=== PATIENT | female | born 1985 | race Caucasian/White ===

== ENCOUNTER 2022-09-23 10:52 | Emergency (ER) | payer OTHER, SELFPAY ==
[2022-09-23] VITALS (27 sets, daily range): BP systolic 110–147; BP diastolic 54–72; PULSE 67–96; RESP 14–18; TEMP 36.7–37; O2SAT 97–100; BMI 26.9
[2022-09-23 11:32] LABS: Add Manual Diff / Slide Review NO; Basophils Absolute Auto 0 /uL (0-100); Basophils Percent Auto 0.8 % (0-2); Eosinophils Absolute Auto 200 /uL (0-450); Eosinophils Percent Auto 3.2 % (2-4); Lymphocytes Absolute Auto 1500 /uL (1100-4500); Lymphocytes Percent Auto 32.8 % (25-40); Mean Corpuscular HGB Conc 29.9 % (30-36); Mean Corpuscular Volume 60.1 fL (80-100); Monocytes Absolute Auto 300 /uL (0-900); Neutrophils Absolute Auto 2600 /uL (1500-7000); Neutrophils Percent Auto 56.2 % (50-75); Platelet Count 435 X10^3/uL (150-400); Red Blood Cell Count 3.37 X10^6/uL (4.0-5.2); White Blood Cell Count 4.6 X10^3/uL (4.5-11.0)
[2022-09-23 11:35] LABS: Hematocrit 20.3 % (36-46); Hemoglobin 6.1 g/dL (12.0-16.0)
[2022-09-23 11:47] LABS: Alanine Aminotransferase 17 IU/L (<35); Albumin 3.9 g/dL (3.5-5.0); Albumin Globulin Ratio 1.1 (1.0-2.8); Alkaline Phosphatase 60 U/L (38-126); Aspartate Aminotransferase 25 IU/L (14-36); BUN Creatinine Ratio 9.5 (6-22); Bilirubin Total 0.2 mg/dL (0.2-1.3); Blood Urea Nitrogen 7 mg/dL (7-17); Calcium 7.9 mg/dL (8.4-10.2); Carbon Dioxide 23 mmol/L (22-32); Chloride 109 mmol/L (98-107); Estimated Glomerular Filt Rate > 60 mL/min (>60); Globulin 3.4 g/dL (1.7-4.1); Glucose 79 mg/dL (70-100); HEMOLYSIS < 15 (0-50); Potassium 3.7 mmol/L (3.4-5.1); Sodium 142 mmol/L (137-145); Total Protein 7.3 g/dL (6.3-8.2)
[2022-09-23 12:04] LABS: Hypochromasia 3+; Microcytosis 3+
[2022-09-23 12:23] LABS: Bacteria Urine None Seen; Culture Indicated Urine Cult Not Indicated; RBC Urine None Seen (0-5/HPF); Squamous Epithelial Cell Urine 0-1 /HPF (0-5/HPF); WBC Urine None Seen (0-5/HPF)
--- NOTE | 2022-09-23 12:29 | DI.CT.S_ITS ---
PROCEDURE: CT ABDOMEN PELVIS W CON INDICATIONS: epigastric, LUQ pain TECHNIQUE: After the administration of oral and IV contrast, axial sections were acquired from the lung bases to the pubic symphysis. Coronal and sagittal reformats were performed. For radiation dose reduction, the following was used: automated exposure control, adjustment of mA and/or kV according to patient size. COMPARISON: None. FINDINGS: Image quality: Excellent. Lung bases: Unremarkable. A small hiatal hernia is incidentally noted. Heart: No significant findings. ABDOMEN: Liver: Unremarkable. Gallbladder: Removed. Biliary ducts: Unremarkable. Pancreas: Unremarkable. Spleen: Unremarkable. Adrenal Glands: Unremarkable. Kidneys and Ureters: A mildly complex septated right renal cyst is seen inferiorly measuring approximately 2.5 cm. The kidneys enhance symmetrically and demonstrate no hydronephrosis. Stomach and Bowel: Bariatric surgery is seen. Peritoneum: No abnormal intraperitoneal fluid. No free air. Ventral Wall: No hernia. Abdominal Nodes: No retroperitoneal or mesenteric adenopathy by size criteria. Vessels: Aorta and inferior vena cava are normal in size. PELVIS: Pelvic Organs: Unremarkable. There is a contraceptive ring seen at the vaginal apex. The uterus appears normal for age. No adnexal masses are seen. Tampon artifact is incidentally noted. Bladder: Unremarkable. Pelvic Nodes: No enlarged lymph nodes. Miscellaneous: No inguinal hernias are seen. Bones: Focal L5-S1 degenerative change is seen. Grade 1 L5-S1 anterolisthesis is seen, with associated bilateral L5 pars defects Mild levoconvex scoliotic curvature is noted. IMPRESSION: A cause of epigastric and left upper quadrant pain is not identified. Prior bariatric surgery, without sohan complication seen. There is a small hiatal hernia. Additional findings: Cholecystectomy Mildly complex right renal cysts, consider Bosniak 2 F Contraceptive ring at the vaginal apex Bilateral L5 pars defects, with grade 1 L5-S1 anterolisthesis Focal L5-S1 degenerative change Dictated by: Zbigniew Martínez M.D. on 09/23/2022 at 12:09 Approved by: Zbigniew Martínez M.D. on 09/23/2022 at 12:13
[2022-09-23] MEDS: KETOROLAC 30 MG/ML VIAL 15 MG IV (12:53)
[2022-09-23 13:41] LABS: INR 0.9 (0.9-1.3); Prothrombin Time 10.2 SECONDS (10.1-12.7)
[2022-09-23 13:44] LABS: PTT Partial Thromboplastin Tim 27 SECONDS (26-36)
[2022-09-23 14:37] LABS: Iron 17 ug/dL (37-170)
--- NOTE | 2022-09-23 14:40 | ED.DIZZY ---
HPI - Dizziness <Tushar Wu PA-C - Last Filed: 09/23/22 19:11> General Chief Complaint: Dizziness Stated Complaint: Low Iron Time Seen by Provider: 09/23/22 11:14 Source: patient Mode of arrival: Ambulatory History of Present Illness HPI Narrative: 37-year-old female who is status post a gastric bypass several years ago, PCOS, currently undergoing IVF treatments presents to the ED with 2 months of worsening dizziness, pallor, craving to eat ice chips. Patient states that her PCP did some blood work which showed a hematocrit of 6.6. Patient states that she just realized that she had stopped her iron supplements that she was supposed to take since having the gastric bypass. Patient states that she stopped the iron about 2 months ago when she started IVF treatments and did not realize it. Patient has no history of anemia prior to this. Patient denies fever, chills, chest pain, shortness of breath, abdominal pain, nausea, vomiting, dysuria, diarrhea, hematochezia, melena, syncope. Patient does endorse lightheadedness, particularly when she is changing positions from sitting to standing. Related Data Allergies Allergy/AdvReac Type Severity Reaction Status Date / Time metoclopramide [From Reglan] Allergy Verified 09/23/22 11:03 nalbuphine [From Nubain] Allergy Verified 09/23/22 11:03 Penicillins Allergy Verified 09/23/22 11:03 Review of Systems <Tushar Wu PA-C - Last Filed: 09/23/22 19:11> Review of Systems ROS Unobtainable: All systems reviewed & are unremarkable except as noted in HPI and below Constitutional Constitutional: Denies chills, Reports fatigue, Denies fever(s), Denies frequent falls, Reports lethargy and Denies weakness Comments: Lightheadedness Eyes Eyes: Denies change in vision, Denies eye discharge, Denies irritation and Denies loss of vision ENT Ears, Nose, Mouth, and Throat: Denies change in voice, Denies dizziness, Denies neck pain, Denies sore throat and Denies throat swelling Cardiovascular Cardiovascular: Denies chest pain, Denies irregular heart rhythm, Denies lightheadedness, Denies palpitations, Denies dyspnea, Denies dyspnea on exertion and Denies orthopnea Respiratory Respiratory: Denies cough, Denies dyspnea, Denies dyspnea on exertion and Denies wheezing Gastrointestinal Gastrointestinal: Denies abdominal pain, Denies change in bowel habits, Denies diarrhea, Denies nausea and Denies vomiting Genitourinary Genitourinary: Denies hematuria, Denies flank pain, Denies urinary incontinence and Denies urinary urgency Musculoskeletal Musculoskeletal: Denies back pain, Denies muscle weakness, Denies neck pain, Denies numbness and Denies tingling Integumentary/Breasts Skin/Breast: Reports change in pigmentation (pallor), Denies pruritus, Denies erythema, Denies rash and Denies wounds Neurologic Neurologic: Denies behavioral changes, Denies confusion, Denies dizziness, Denies frequent falls, Denies loss of vision, Denies numbness, Denies tingling and Denies weakness Psychiatric Psychiatric: Denies anxiety, Denies behavioral changes, Denies confusion, Denies depression, Denies homicidal ideation and Denies suicidal ideation Endocrine Endocrine: Reports fatigue, Denies flushing and Denies palpitations Hematologic/Lymphatic Hematologic/Lymphatic: Denies easy bruising Allergic/Immunologic Allergic/Immunologic: Denies urticaria, Denies throat swelling and Denies wheezing Patient History <Tushar Wu PA-C - Last Filed: 09/23/22 19:11> Social History Smoking Status: Never smoker Smoking Status: Never smoker alcohol intake frequency: holidays/special occasions only Substance Use Type: does not use Exam <Tushar Wu PA-C - Last Filed: 09/23/22 19:11> Narrative Exam Narrative: Const General:?cooperative, healthy appearing and comfortable; skin appears pale HENHI Head:?normal to inspection Ears:?hearing grossly normal bilaterally Nose:?external nose normal Face and sinus:?normal facial exam and sinuses nontender Mouth:?oral mucosae normal Throat:?posterior oropharynx normal Eyes General:?appearance normal, both eyes and all related structures Neck Neck:?normal visual inspection and no lymphadenopathy noted Resp Effort & Inspection:?normal respiratory effort Auscultation:?clear to auscultation bilaterally Cardio Rate:?regular rate Rhythm:?regular rhythm GI Abdomen is soft, nondistended, tender to palpation in the right upper quadrant and epigastric regions. Neuro General:?patient alert, patient awake and patient oriented x3 Initial Vital Signs Initial Vital Signs: Vital Signs Temperature 98.6 F 09/23/22 11:03 Pulse Rate 93 H 09/23/22 11:03 Respiratory Rate 18 09/23/22 11:03 Blood Pressure 122/70 09/23/22 11:03 Pulse Oximetry 100 09/23/22 11:03 Oxygen Delivery Method 09/23/22 11:03 <Jerilyn Maza DO - Last Filed: 09/25/22 07:24> Initial Vital Signs Initial Vital Signs: Vital Signs Temperature 98.6 F 09/23/22 11:03 Pulse Rate 93 H 09/23/22 11:03 Respiratory Rate 18 09/23/22 11:03 Blood Pressure 122/70 09/23/22 11:03 Pulse Oximetry 100 09/23/22 11:03 Oxygen Delivery Method 09/23/22 11:03 Course <Tushar Wu PA-C - Last Filed: 09/23/22 19:11> Orders Ordered: Discontinued Medications Ketorolac Tromethamine (Ketorolac 30 Mg/Ml Vial) 15 mg IV NOW ONE Stop: 09/23/22 12:27 Last Admin: 09/23/22 12:53 Dose: 15 mg Documented By: KENYETTA Ondansetron HCl (Ondansetron 4 Mg/2 Ml Inj) 4 mg IV NOW ONE Stop: 09/23/22 16:40 Last Admin: 09/23/22 16:40 Dose: 4 mg Documented By: KENYETTA Vital Signs Vital signs: Vital Signs - 8 hr 09/23/22 14:18 09/23/22 14:40 09/23/22 12:56 Temperature 98.1 F 98.2 F Pulse Rate 67 74 Respiratory Rate 14 14 Blood Pressure 118/59 L 110/56 L 116/59 L Pulse Oximetry 09/23/22 12:56 09/23/22 13:00 09/23/22 13:00 Temperature Pulse Rate 77 81 Respiratory Rate Blood Pressure 127/72 Pulse Oximetry 99 97 09/23/22 13:30 09/23/22 13:30 09/23/22 14:00 Temperature Pulse Rate 77 Respiratory Rate Blood Pressure 112/59 L 136/60 Pulse Oximetry 97 09/23/22 14:00 09/23/22 14:19 09/23/22 14:19 Temperature Pulse Rate 81 70 Respiratory Rate Blood Pressure 118/59 L Pulse Oximetry 99 100 12/26/22 14:30 09/23/22 14:30 09/23/22 14:45 Temperature Pulse Rate 73 Respiratory Rate Blood Pressure 110/56 L 130/65 Pulse Oximetry 100 09/23/22 14:45 09/23/22 15:00 09/23/22 15:00 Temperature Pulse Rate 75 74 Respiratory Rate Blood Pressure 116/57 L Pulse Oximetry 99 98 09/23/22 16:30 09/23/22 16:48 09/23/22 15:13 Temperature 98.3 F 98.3 F Pulse Rate 79 90 96 H Respiratory Rate 18 16 Blood Pressure 119/60 122/62 Pulse Oximetry 99 09/23/22 15:15 09/23/22 15:30 09/23/22 15:31 Temperature Pulse Rate 79 Respiratory Rate Blood Pressure 147/66 H 130/61 Pulse Oximetry 100 09/23/22 15:31 09/23/22 15:45 09/23/22 15:45 Temperature Pulse Rate 81 82 Respiratory Rate Blood Pressure 121/56 L Pulse Oximetry 100 98 09/23/22 16:00 09/23/22 16:00 09/23/22 16:15 Temperature Pulse Rate 86 Respiratory Rate Blood Pressure 112/54 L 120/59 L Pulse Oximetry 98 09/23/22 16:15 09/23/22 17:00 09/23/22 17:48 Temperature Pulse Rate 83 90 Respiratory Rate Blood Pressure 123/72 Pulse Oximetry 98 99 09/23/22 17:48 09/23/22 18:00 09/23/22 18:00 Temperature Pulse Rate 78 80 Respiratory Rate Blood Pressure 136/68 Pulse Oximetry 99 100 09/23/22 18:15 09/23/22 18:15 09/23/22 18:30 Temperature Pulse Rate 69 Respiratory Rate Blood Pressure 134/68 125/66 Pulse Oximetry 100 09/23/22 18:30 09/23/22 18:45 09/23/22 18:45 Temperature Pulse Rate 74 75 Respiratory Rate Blood Pressure 120/64 Pulse Oximetry 100 98 <Jerilyn Maza DO - Last Filed: 09/25/22 07:24> Orders Ordered: Discontinued Medications Ketorolac Tromethamine (Ketorolac 30 Mg/Ml Vial) 15 mg IV NOW ONE Stop: 09/23/22 12:27 Last Admin: 09/23/22 12:53 Dose: 15 mg Documented By: KENYETTA Ondansetron HCl (Ondansetron 4 Mg/2 Ml Inj) 4 mg IV NOW ONE Stop: 09/23/22 16:40 Last Admin: 09/23/22 16:40 Dose: 4 mg Documented By: KENYETTA Vital Signs Vital signs: Vital Signs - 8 hr 09/23/22 14:18 09/23/22 14:40 09/23/22 12:56 Temperature 98.1 F 98.2 F Pulse Rate 67 74 Respiratory Rate 14 14 Blood Pressure 118/59 L 110/56 L 116/59 L Pulse Oximetry 09/23/22 12:56 09/23/22 13:00 09/23/22 13:00 Temperature Pulse Rate 77 81 Respiratory Rate Blood Pressure 127/72 Pulse Oximetry 99 97 09/23/22 13:30 09/23/22 13:30 09/23/22 14:00 Temperature Pulse Rate 77 Respiratory Rate Blood Pressure 112/59 L 136/60 Pulse Oximetry 97 09/23/22 14:00 09/23/22 14:19 09/23/22 14:19 Temperature Pulse Rate 81 70 Respiratory Rate Blood Pressure 118/59 L Pulse Oximetry 99 100 09/23/22 14:30 09/23/22 14:30 09/23/22 14:45 Temperature Pulse Rate 73 Respiratory Rate Blood Pressure 110/56 L 130/65 Pulse Oximetry 100 09/23/22 14:45 09/23/22 15:00 09/23/22 15:00 Temperature Pulse Rate 75 74 Respiratory Rate Blood Pressure 116/57 L Pulse Oximetry 99 98 09/23/22 16:30 09/23/22 16:48 09/23/22 15:13 Temperature 98.3 F 98.3 F Pulse Rate 79 90 96 H Respiratory Rate 18 16 Blood Pressure 119/60 122/62 Pulse Oximetry 99 09/23/22 15:15 09/23/22 15:30 09/23/22 15:31 Temperature Pulse Rate 79 Respiratory Rate Blood Pressure 147/66 H 130/61 Pulse Oximetry 100 09/23/22 15:31 09/23/22 15:45 09/23/22 15:45 Temperature Pulse Rate 81 82 Respiratory Rate Blood Pressure 121/56 L Pulse Oximetry 100 98 09/23/22 16:00 09/23/22 16:00 09/23/22 16:15 Temperature Pulse Rate 86 Respiratory Rate Blood Pressure 112/54 L 120/59 L Pulse Oximetry 98 09/23/22 16:15 09/23/22 17:00 09/23/22 17:48 Temperature Pulse Rate 83 90 Respiratory Rate Blood Pressure 123/72 Pulse Oximetry 98 99 09/23/22 17:48 09/23/22 18:00 09/23/22 18:00 Temperature Pulse Rate 78 80 Respiratory Rate Blood Pressure 136/68 Pulse Oximetry 99 100 09/23/22 18:15 09/23/22 18:15 09/23/22 18:30 Temperature Pulse Rate 69 Respiratory Rate Blood Pressure 134/68 125/66 Pulse Oximetry 100 09/23/22 18:30 09/23/22 18:45 09/23/22 18:45 Temperature Pulse Rate 74 75 Respiratory Rate Blood Pressure 120/64 Pulse Oximetry 100 98 MDM - Dizziness <Tushar Wu PA-C - Last Filed: 09/23/22 19:11> Lab Data Result diagrams: 09/23/22 18:13 09/23/22 11:22 Labs: Lab Results 09/23/22 09/23/22 09/23/22 Range/Units 11:13 11:13 11:15 WBC (4.5-11.0) X10^3/uL RBC (4.0-5.2) X10^6/uL Hgb (12.0-16.0) g/dL Hct (36-46) % MCV (80-100) fL MCH (26-34) PG MCHC (30-36) % RDW (11.6-14.8) % Plt Count (150-400) X10^3/uL Neut % (Auto) (50-75) % Lymph % (Auto) (25-40) % [place] % (Auto) (3-14) % Eos % (Auto) (2-4) % Baso % (Auto) (0-2) % Neut # (Auto) (8654-9921) /uL Lymph # (Auto) (6732-9623) /uL [place] # (Auto) (0-900) /uL Eos # (Auto) (0-450) /uL Baso # (Auto) (0-100) /uL RBC Morphology Hypochromasia Microcytosis PT 10.2 (10.1-12.7) SECONDS INR 0.9 (0.9-1.3) APTT 27 (26-36) SECONDS Sodium (137-145) mmol/L Potassium (3.4-5.1) mmol/L Chloride (98-107) mmol/L Carbon Dioxide (22-32) mmol/L BUN (7-17) mg/dL Creatinine (0.52-1.04) mg/dL Estimated GFR (>60) mL/min BUN/Creatinine Ratio (6-22) Glucose (70-100) mg/dL Calcium (8.4-10.2) mg/dL Iron 17 L (37-170) ug/dL Ferritin 4 L (6-137) ng/mL Total Bilirubin (0.2-1.3) mg/dL AST (14-36) IU/L ALT (<35) IU/L Alkaline Phosphatase (38-126) U/L Total Protein (6.3-8.2) g/dL Albumin (3.5-5.0) g/dL Globulin (1.7-4.1) g/dL Albumin/Globulin Ratio (1.0-2.8) Urine RBC (0-5/HPF) Urine WBC (0-5/HPF) Ur Squamous Epith Cells (0-5/HPF) Urine Bacteria (None) Ur Culture Indicated? Blood Type Antibody Screen Crossmatch 09/23/22 09/23/22 09/23/22 Range/Units 11:20 11:22 11:22 WBC 4.6 (4.5-11.0) X10^3/uL RBC 3.37 L (4.0-5.2) X10^6/uL Hgb 6.1 L* (12.0-16.0) g/dL Hct 20.3 L* (36-46) % MCV 60.1 L (80-100) fL MCH 18.0 L (26-34) PG MCHC 29.9 L (30-36) % RDW 24.0 H (11.6-14.8) % Plt Count 435 H (150-400) X10^3/uL Neut % (Auto) 56.2 (50-75) % Lymph % (Auto) 32.8 (25-40) % [place] % (Auto) 7.0 (3-14) % Eos % (Auto) 3.2 (2-4) % Baso % (Auto) 0.8 (0-2) % Neut # (Auto) 2600 (7987-8089) /uL Lymph # (Auto) 1500 (6639-6883) /uL [place] # (Auto) 300 (0-900) /uL Eos # (Auto) 200 (0-450) /uL Baso # (Auto) 0 (0-100) /uL RBC Morphology See below Hypochromasia 3+ H Microcytosis 3+ H PT (10.1-12.7) SECONDS INR (0.9-1.3) APTT (26-36) SECONDS Sodium 142 (137-145) mmol/L Potassium 3.7 (3.4-5.1) mmol/L Chloride 109 H (98-107) mmol/L Carbon Dioxide 23 (22-32) mmol/L BUN 7 (7-17) mg/dL Creatinine 0.74 (0.52-1.04) mg/dL Estimated GFR > 60 (>60) mL/min BUN/Creatinine Ratio 9.5 (6-22) Glucose 79 (70-100) mg/dL Calcium 7.9 L (8.4-10.2) mg/dL Iron (37-170) ug/dL Ferritin (6-137) ng/mL Total Bilirubin 0.2 (0.2-1.3) mg/dL AST 25 (14-36) IU/L ALT 17 (<35) IU/L Alkaline Phosphatase 60 (38-126) U/L Total Protein 7.3 (6.3-8.2) g/dL Albumin 3.9 (3.5-5.0) g/dL Globulin 3.4 (1.7-4.1) g/dL Albumin/Globulin Ratio 1.1 (1.0-2.8) Urine RBC None seen (0-5/HPF) Urine WBC None seen (0-5/HPF) Ur Squamous Epith Cells 0-1 /hpf (0-5/HPF) Urine Bacteria None seen (None) Ur Culture Indicated? Cult not indicated Blood Type Antibody Screen Crossmatch 09/23/22 09/23/22 Range/Units 11:23 18:13 WBC (4.5-11.0) X10^3/uL RBC (4.0-5.2) X10^6/uL Hgb 7.6 L (12.0-16.0) g/dL Hct 24.4 L (36-46) % MCV (80-100) fL MCH (26-34) PG MCHC (30-36) % RDW (11.6-14.8) % Plt Count (150-400) X10^3/uL Neut % (Auto) (50-75) % Lymph % (Auto) (25-40) % [place] % (Auto) (3-14) % Eos % (Auto) (2-4) % Baso % (Auto) (0-2) % Neut # (Auto) (8709-6525) /uL Lymph # (Auto) (0421-9887) /uL [place] # (Auto) (0-900) /uL Eos # (Auto) (0-450) /uL Baso # (Auto) (0-100) /uL RBC Morphology Hypochromasia Microcytosis PT (10.1-12.7) SECONDS INR (0.9-1.3) APTT (26-36) SECONDS Sodium (137-145) mmol/L Potassium (3.4-5.1) mmol/L Chloride (98-107) mmol/L Carbon Dioxide (22-32) mmol/L BUN (7-17) mg/dL Creatinine (0.52-1.04) mg/dL Estimated GFR (>60) mL/min BUN/Creatinine Ratio (6-22) Glucose (70-100) mg/dL Calcium (8.4-10.2) mg/dL Iron (37-170) ug/dL Ferritin (6-137) ng/mL Total Bilirubin (0.2-1.3) mg/dL AST (14-36) IU/L ALT (<35) IU/L Alkaline Phosphatase (38-126) U/L Total Protein (6.3-8.2) g/dL Albumin (3.5-5.0) g/dL Globulin (1.7-4.1) g/dL Albumin/Globulin Ratio (1.0-2.8) Urine RBC (0-5/HPF) Urine WBC (0-5/HPF) Ur Squamous Epith Cells (0-5/HPF) Urine Bacteria (None) Ur Culture Indicated? Blood Type A Positive Antibody Screen Negative Crossmatch See Detail Point of Care Testing Test Results Negative Urine Dip Bedside Urine Glucose Negative Bedside Urine Bilirubin - Negative Bedside Urine Ketone - Negative Urine Specific Cook Sta 1.005 Bedside Urine Occult Blood +/- Bedside Urine pH 6.0 Bedside Urine Protein - Negative Bedside Urine Urobilinogen - Negative Bedside Urine Nitrite - Negative Bedside Urine Leukocytes - Negative Esterase Imaging Data CT scan - abdomen/pelvis: Radiologist's Impression: PROCEDURE:? CT ABDOMEN PELVIS W CON ? INDICATIONS:? epigastric, LUQ pain ? TECHNIQUE:? After the administration of oral and IV contrast, axial sections were acquired from the lung bases to the pubic symphysis.? Coronal and sagittal reformats were performed.? For radiation dose reduction, the following was used:? automated exposure control, adjustment of mA and/or kV according to patient size. ? COMPARISON:? None. ? FINDINGS:? Image quality:? Excellent.? ? Lung bases:? Unremarkable.? ? A small hiatal hernia is incidentally noted.? Heart:? No significant findings. ? ? ABDOMEN: Liver:? Unremarkable.? ? Gallbladder:? Removed.? ? Biliary ducts:? Unremarkable.? ? Pancreas:? Unremarkable.? ? Spleen:? Unremarkable.? ? Adrenal Glands:? Unremarkable.? ? Kidneys and Ureters:? A mildly complex septated right renal cyst is seen inferiorly measuring approximately 2.5 cm.? The kidneys enhance symmetrically and demonstrate no hydronephrosis. ? Stomach and Bowel:? Bariatric surgery is seen. Peritoneum:? No abnormal intraperitoneal fluid.? No free air.? ? Ventral Wall: ? No hernia.? Abdominal Nodes:? No retroperitoneal or mesenteric adenopathy by size criteria.? Vessels:? Aorta and inferior vena cava are normal in size.? ? PELVIS: Pelvic Organs:? Unremarkable.? ? There is a contraceptive ring seen at the vaginal apex. The uterus appears normal for age.? No adnexal masses are seen.? Tampon artifact is incidentally noted.? Bladder:? Unremarkable.? ? Pelvic Nodes: No enlarged lymph nodes.? Miscellaneous: No inguinal hernias are seen. ? ? ? Bones:? Focal L5-S1 degenerative change is seen.? Grade 1 L5-S1 anterolisthesis is seen, with associated bilateral L5 pars defects Mild levoconvex scoliotic curvature is noted.? ? ? IMPRESSION:? A cause of epigastric and left upper quadrant pain is not identified. ? Prior bariatric surgery, without sohan complication seen. ? There is a small hiatal hernia. ? ? Additional findings: Cholecystectomy Mildly complex right renal cysts, consider Bosniak 2 F Contraceptive ring at the vaginal apex Bilateral L5 pars defects, with grade 1 L5-S1 anterolisthesis Focal L5-S1 degenerative change ? ? Dictated by: Zbigniew Martínez M.D. on 09/23/2022 at 12:09 ? ? Approved by: Zbigniew Martínez M.D. on 09/23/2022 at 12:13 ? MDM Narrative Medical decision making narrative: 37-year-old female who is status post a gastric bypass several years ago, PCOS, currently undergoing IVF treatments presents to the ED with 2 months of worsening dizziness, pallor, craving to eat ice chips. Concern for anemia versus metabolic derangements versus dehydration versus GI bleed versus surgical complications versus other. Will obtain labs, UA, hCG, coags, type and screen, ferritin, iron, stool guaiac. Hemoglobin low at 6.1, hematocrit low at 20.3. MCV and RDW point towards likely low ferritin levels. Rectal exam for guaiac was inconclusive, since there was not enough stool obtainable during exam. Patient does have some hemorrhoids on exam. UA negative for UTI. HCG negative. Will transfuse 2 units of PRBCs, recheck H&H. Patient was transfused 2 units of PRBCs. Repeat H&H was 7.6/24.4. Patient stable in the ED. discharge patient home with ED return precautions, follow-up with PCP for continued monitoring of H&H, recommend to resume iron supplements. Patient verbalized understanding. <Jerilyn Maza, DO - Last Filed: 09/25/22 07:24> Lab Data Labs: Lab Results 09/23/22 09/23/22 09/23/22 Range/Units 11:13 11:13 11:15 WBC (4.5-11.0) X10^3/uL RBC (4.0-5.2) X10^6/uL Hgb (12.0-16.0) g/dL Hct (36-46) % MCV (80-100) fL MCH (26-34) PG MCHC (30-36) % RDW (11.6-14.8) % Plt Count (150-400) X10^3/uL Neut % (Auto) (50-75) % Lymph % (Auto) (25-40) % [place] % (Auto) (3-14) % Eos % (Auto) (2-4) % Baso % (Auto) (0-2) % Neut # (Auto) (0442-1595) /uL Lymph # (Auto) (7682-7827) /uL [place] # (Auto) (0-900) /uL Eos # (Auto) (0-450) /uL Baso # (Auto) (0-100) /uL RBC Morphology Hypochromasia Microcytosis PT 10.2 (10.1-12.7) SECONDS INR 0.9 (0.9-1.3) APTT 27 (26-36) SECONDS Sodium (137-145) mmol/L Potassium (3.4-5.1) mmol/L Chloride (98-107) mmol/L Carbon Dioxide (22-32) mmol/L BUN (7-17) mg/dL Creatinine (0.52-1.04) mg/dL Estimated GFR (>60) mL/min BUN/Creatinine Ratio (6-22) Glucose (70-100) mg/dL Calcium (8.4-10.2) mg/dL Iron 17 L (37-170) ug/dL Ferritin 4 L (6-137) ng/mL Total Bilirubin (0.2-1.3) mg/dL AST (14-36) IU/L ALT (<35) IU/L Alkaline Phosphatase (38-126) U/L Total Protein (6.3-8.2) g/dL Albumin (3.5-5.0) g/dL Globulin (1.7-4.1) g/dL Albumin/Globulin Ratio (1.0-2.8) Urine RBC (0-5/HPF) Urine WBC (0-5/HPF) Ur Squamous Epith Cells (0-5/HPF) Urine Bacteria (None) Ur Culture Indicated? Blood Type Antibody Screen Crossmatch 09/23/22 09/23/22 09/23/22 Range/Units 11:20 11:22 11:22 WBC 4.6 (4.5-11.0) X10^3/uL RBC 3.37 L (4.0-5.2) X10^6/uL Hgb 6.1 L* (12.0-16.0) g/dL Hct 20.3 L* (36-46) % MCV 60.1 L (80-100) fL MCH 18.0 L (26-34) PG MCHC 29.9 L (30-36) % RDW 24.0 H (11.6-14.8) % Plt Count 435 H (150-400) X10^3/uL Neut % (Auto) 56.2 (50-75) % Lymph % (Auto) 32.8 (25-40) % [place] % (Auto) 7.0 (3-14) % Eos % (Auto) 3.2 (2-4) % Baso % (Auto) 0.8 (0-2) % Neut # (Auto) 2600 (5726-2022) /uL Lymph # (Auto) 1500 (4653-4502) /uL [place] # (Auto) 300 (0-900) /uL Eos # (Auto) 200 (0-450) /uL Baso # (Auto) 0 (0-100) /uL RBC Morphology See below Hypochromasia 3+ H Microcytosis 3+ H PT (10.1-12.7) SECONDS INR (0.9-1.3) APTT (26-36) SECONDS Sodium 142 (137-145) mmol/L Potassium 3.7 (3.4-5.1) mmol/L Chloride 109 H (98-107) mmol/L Carbon Dioxide 23 (22-32) mmol/L BUN 7 (7-17) mg/dL Creatinine 0.74 (0.52-1.04) mg/dL Estimated GFR > 60 (>60) mL/min BUN/Creatinine Ratio 9.5 (6-22) Glucose 79 (70-100) mg/dL Calcium 7.9 L (8.4-10.2) mg/dL Iron (37-170) ug/dL Ferritin (6-137) ng/mL Total Bilirubin 0.2 (0.2-1.3) mg/dL AST 25 (14-36) IU/L ALT 17 (<35) IU/L Alkaline Phosphatase 60 (38-126) U/L Total Protein 7.3 (6.3-8.2) g/dL Albumin 3.9 (3.5-5.0) g/dL Globulin 3.4 (1.7-4.1) g/dL Albumin/Globulin Ratio 1.1 (1.0-2.8) Urine RBC None seen (0-5/HPF) Urine WBC None seen (0-5/HPF) Ur Squamous Epith Cells 0-1 /hpf (0-5/HPF) Urine Bacteria None seen (None) Ur Culture Indicated? Cult not indicated Blood Type Antibody Screen Crossmatch 09/23/22 09/23/22 Range/Units 11:23 18:13 WBC (4.5-11.0) X10^3/uL RBC (4.0-5.2) X10^6/uL Hgb 7.6 L (12.0-16.0) g/dL Hct 24.4 L (36-46) % MCV (80-100) fL MCH (26-34) PG MCHC (30-36) % RDW (11.6-14.8) % Plt Count (150-400) X10^3/uL Neut % (Auto) (50-75) % Lymph % (Auto) (25-40) % [place] % (Auto) (3-14) % Eos % (Auto) (2-4) % Baso % (Auto) (0-2) % Neut # (Auto) (6358-3874) /uL Lymph # (Auto) (8724-7010) /uL [place] # (Auto) (0-900) /uL Eos # (Auto) (0-450) /uL Baso # (Auto) (0-100) /uL RBC Morphology Hypochromasia Microcytosis PT (10.1-12.7) SECONDS INR (0.9-1.3) APTT (26-36) SECONDS Sodium (137-145) mmol/L Potassium (3.4-5.1) mmol/L Chloride (98-107) mmol/L Carbon Dioxide (22-32) mmol/L BUN (7-17) mg/dL Creatinine (0.52-1.04) mg/dL Estimated GFR (>60) mL/min BUN/Creatinine Ratio (6-22) Glucose (70-100) mg/dL Calcium (8.4-10.2) mg/dL Iron (37-170) ug/dL Ferritin (6-137) ng/mL Total Bilirubin (0.2-1.3) mg/dL AST (14-36) IU/L ALT (<35) IU/L Alkaline Phosphatase (38-126) U/L Total Protein (6.3-8.2) g/dL Albumin (3.5-5.0) g/dL Globulin (1.7-4.1) g/dL Albumin/Globulin Ratio (1.0-2.8) Urine RBC (0-5/HPF) Urine WBC (0-5/HPF) Ur Squamous Epith Cells (0-5/HPF) Urine Bacteria (None) Ur Culture Indicated? Blood Type A Positive Antibody Screen Negative Crossmatch See Detail Point of Care Testing Test Results Negative Urine Dip Bedside Urine Glucose Negative Bedside Urine Bilirubin - Negative Bedside Urine Ketone - Negative Urine Specific Cook Sta 1.005 Bedside Urine Occult Blood +/- Bedside Urine pH 6.0 Bedside Urine Protein - Negative Bedside Urine Urobilinogen - Negative Bedside Urine Nitrite - Negative Bedside Urine Leukocytes - Negative Esterase Discharge Plan Departure Patient Disposition: Home Clinical Impression: Anemia Instructions: Anemia Activity Restrictions/Additional Instructions: You were evaluated in the ED today for lightheadedness, anemia. Your hemoglobin was as low as 6.1, you were transfused 2 units of blood, which brought your hemoglobin up to 7.6. Given that your iron and ferritin is low, your anemia is likely due to low iron levels. Please take your iron supplements as prescribed for you. Please follow-up with your primary care doctor for continued monitoring of your iron levels. Return to the ED if your symptoms worsen, you get more lightheaded, you have trouble breathing. Visit Report Forms: Patient Portal/API <Jerilyn Maza DO - Last Filed: 09/25/22 07:24> Cosign ED Attending Jt Attestation: I was immediately available in the department for consultation. Documentation has been reviewed. I agree with assessment and plan.
[2022-09-23 14:51] LABS: Ferritin 4 ng/mL (6-137)
--- NOTE | 2022-09-23 16:33 | TAR.TRANSNT ---
Pts vitals done prior to verification
[2022-09-23] MEDS: ONDANSETRON 4 MG/2 ML INJ IV (16:40)
[2022-09-23 18:20] LABS: Hematocrit 24.4 % (36-46); Hemoglobin 7.6 g/dL (12.0-16.0)
== END 2022-09-23 19:02 | disposition home or self-care (01) ==
PROVIDERS: Emergency Medicine; Emergency Provider Student in an Organized Health Care Education/Training Program
DX: D64.9 Anemia, unspecified (principal); R79.89 Other specified abnormal findings of blood chemistry; E28.2 Polycystic ovarian syndrome; Z98.84 Bariatric surgery status
CPT/HCPCS: 36415; 36430; 74177; 80053; 81003; 81015; 81025; 82728; 83540; 85014; 85018; 85025; 85610; 85730; 86850; 86900; 86901; 96374; 96375; 99285; P9016; J1885; J2405; Q9967